=== PATIENT | male | born 1990 | race Two or more races ===

== ENCOUNTER 2016-12-27 08:33 | Emergency (ER) | payer OTHER ==
[~2016-12-27] VITALS: Ht 190.5 cm; Wt 93.0 kg
[2016-12-27 08:36] VITALS: BP 135/71
== END 2016-12-27 09:08 ==
LOC: ER 08:37
DX: S00.83XA Contusion of other part of head, initial encounter (principal); Y04.0XXA Assault by unarmed brawl or fight, initial encounter; Y93.89 Activity, other specified; Y92.149 Unspecified place in prison as the place of occurrence of the external cause; Y99.8 Other external cause status
CPT/HCPCS: 99283; A4606; Z7610